=== PATIENT | female | born 1990 | race American Indian/Alaskan Native ===

== ENCOUNTER 2019-10-28 18:00 | Emergency (ER) | payer OTHER ==
[2019-10-28 18:14] VITALS: BP 114/63
--- NOTE | 2019-10-28 18:35 | Emergency Department Report ---
Chief Complaint: Sore Throat Stated Complaint: FLU Time Seen by Provider: 10/28/19 18:28 - HPI History of Present Illness: PT CO SORE THROAT, CHILLS, AND COLD LIKE SYMPTOMS FOR SEVERAL DAYS NO ABD PAIN. NO N/V/D. NO FEVER ON ADMIT TO ACC SHE IS HERE WITH 2 SMALL KIDS NOT ILL PMH ASTHMA RX NONE PSH NONE CIG/ETOH/DRUGS NONE LMP END OF AUG. - ROS Review of Systems: SEE ABOVE - Exam Vital Signs: Vital Signs 10/28/19 18:12 Temperature 98.9 F Pulse Rate 84 Respiratory 18 Rate Blood Pressure 114/63 O2 Sat by Pulse 100 Oximetry Physical Exam: ALERT AND ORIENTED LUNGS CTA S1S2 NON ILL NON TOXIC APPEARING MSE screening note: Focused history and physical exam performed. Due to findings the following was ordered: MSE COMPLETED NO LIFE THREAT WAITING TO SEE IF PT ELECTS TO STAY FOR TREATMENT Patient discussed with doctor:: ALL[facility] ED Disposition for MSE Disposition: MED SCREENING EXAM-LEFT Is pt being admited?: No Does the pt Need Aspirin: No Condition: Stable Referrals: PRIMARY CARE, [Primary Care Provider] - 3-5 Days Forms: Work/School Release Form(ED) Time of Disposition: 18:40
== END 2019-10-28 18:35 | disposition left against medical advice (07) ==
LOC: ED 18:00
DX: J02.9 Acute pharyngitis, unspecified (principal); R68.83 Chills (without fever)
CPT/HCPCS: 99281